=== PATIENT | female | born 1990 | race Hispanic/Latino ===

== ENCOUNTER 2019-07-11 18:07 | Emergency (ER) | payer BC ==
[2019-07-11 18:44] LABS: APPEARANCE,URINE SL CLOUDY (CLEAR); BILIRUBIN,URINE NEGATIVE (NEGATIVE); COLOR,URINE YELLOW (YELLOW); GLUCOSE, URINE (UA) NEGATIVE (NEGATIVE); KETONES,URINE 40 mg/dL (NEGATIVE); LEUKOCYTE ESTERASE ,URINE NEGATIVE (NEGATIVE); NITRATE,URINE NEGATIVE (NEGATIVE); OCCULT BLOOD,URINE SMALL (NEGATIVE); PROTEIN,URINE TRACE mg/dL (NEGATIVE); UROBILINOGEN,URINE 0.2 mg/dL (0.2-1.0)
[2019-07-11 18:47] LABS: HCG,QUAL RESULT POSITIVE (NEGATIVE)
[2019-07-11 18:55] LABS: BACTERIA,URINE Few /HPF (None Seen); MUCUS,URINE Few LPF (None Seen); SQUAMOUS EPITHELIAL CELL,UR Few /HPF (0-2)
== END 2019-07-11 20:42 | disposition home or self-care (01) ==
LOC: EDH 18:07
DX: O20.0 Threatened abortion (principal); Z98.890 Other specified postprocedural states; Z3A.13 13 weeks gestation of pregnancy
CPT/HCPCS: 36415; 76801; 81001; 81025; 84702; 87880

== ENCOUNTER 2019-08-08 06:37 | Observation (INO) | payer BC ==
[~2019-08-08] VITALS: Ht 160 cm; Wt 112.9 kg
[2019-08-08] MEDS ORDERED: ONDANSETRON HCL 4 MG/2 ML VIAL ONE ×2 (07:22→08:41)
[2019-08-08] MEDS ORDERED: MORPHINE SULFATE 4 MG/1ML SYG ONE (07:22)
[2019-08-08 07:25] LABS: BASOPHILS % (AUTO) 0.6 % (0.0-5.0); EOSINOPHILS % (AUTO) 0.8 % (0.0-8.0); HEMATOCRIT 35.7 % (36-48); LYMPHOCYTES % (AUTO) 16.6 % (21.0-51.0); MEAN CORPUSCULAR HGB CONC 34.3 g/dL (32.0-36.0); MEAN CORPUSCULAR VOLUME 81.7 fL (79-99); MONOCYTES % (AUTO) 3.9 % (3.0-13.0); NEUTROPHILS % (AUTO) 78.1 % (40.0-77.0); PLATELET COUNT (AUTO) 355 K/uL (130-400); RED BLOOD CELL COUNT(AUTO) 4.37 MIL/uL (4.00-5.50); RED CELL DISTRIBUTION WIDTH 13.8 % (11.0-15.5); WHITE BLOOD COUNT (AUTO) 14.8 K/uL (4.8-10.8)
[2019-08-08 07:28] LABS: CREATININE 0.7 mg/dL (0.5-1.5); POTASSIUM 4.1 mmol/L (3.5-5.1)
[2019-08-08 07:34] LABS: BILIRUBIN,TOTAL 0.2 mg/dL (0.2-1.0); TOTAL PROTEIN, SERUM 7.3 g/dL (6.0-8.3)
[2019-08-08 08:12] LABS: BILIRUBIN,URINE SMALL (NEGATIVE); COLOR,URINE YELLOW (YELLOW); GLUCOSE, URINE (UA) NEGATIVE (NEGATIVE); KETONES,URINE 15 mg/dL (NEGATIVE); LEUKOCYTE ESTERASE ,URINE SMALL (NEGATIVE); NITRATE,URINE NEGATIVE (NEGATIVE); OCCULT BLOOD,URINE LARGE (NEGATIVE); PROTEIN,URINE 30 mg/dL (NEGATIVE)
[2019-08-08 08:13] LABS: APPEARANCE,URINE SLIGHTLY CLOUDY (CLEAR); HCG,QUAL RESULT POSITIVE (NEGATIVE)
[2019-08-08 08:36] LABS: BACTERIA,URINE Moderate /HPF (None Seen); SQUAMOUS EPITHELIAL CELL,UR 30-50 /HPF (0-2)
[2019-08-08] MEDS ORDERED: SODIUM CHLORIDE 0.9% 1000ML 1,000 ML IV ONE (09:15)
[2019-08-08] MEDS ORDERED: CEFTRIAXONE SODIUM 1 GM ONE (09:53)
[2019-08-08] MEDS ORDERED: SODIUM CHLORIDE 0.9% 100 ML IV ONE (09:54)
[2019-08-08] MEDS ORDERED: DEXTROSE 5 %-0.45 % NACL 1,000 ML IV ONE (10:05)
[2019-08-08] MEDS ORDERED: MEPERIDINE-PF 50 MG/ML SYG ONE (10:30)
--- NOTE | 2019-08-08 11:00 | NUR ---
ER ADMISSION PT ADMITTED FROM ER BY STRETCHER IN STABLE CONDITION. DR. HERANNDEZ, RESIDENT FOR DR. SOLIS, AT BEDSIDE TO ASSESS AND TALK TO PT.
[2019-08-08 11:12] VITALS: BP 125/76
[2019-08-08] MEDS ORDERED: PREN-154 PO (11:17)
[2019-08-08] MEDS ORDERED: PROG100C11 PO (11:17)
[2019-08-08] MEDS ORDERED: FLU VACC QS2019-20 36MOS UP/PF 60 MCG/0.5 ML ML IM SCH (11:45)
[2019-08-08] MEDS ORDERED: MEPERIDINE-PF 50 MG/ML SYG IM PRN (12:30)
[2019-08-08] MEDS ORDERED: ONDANSETRON HCL 4 MG/2 ML VIAL IVP PRN (12:30)
[2019-08-08] MEDS: CEFAZOLIN SODIUM 1 GM VIAL IVP SCH ×2 (12:40→20:36)
[2019-08-08] MEDS: DEXTROSE 5 %-0.45 % NACL 1,000 ML IV SCH ×2 (12:50→19:04)
[2019-08-08 15:34] VITALS: BP 122/69
--- NOTE | 2019-08-08 17:50 | NUR ---
PHYSICIAN ROUNDING DR. JAYCEE SOLIS AT BEDSIDE TO ASSESS AND TALK TO PT. POC DISCUSSED AND PT IN AGREEMENT. NEW ORDERS RECEIVED FOR CLEAR LIQUID DIET.
[2019-08-08 19:22] VITALS: BP 121/68
[2019-08-08 23:20] VITALS: BP 108/64
[2019-08-09 04:07] VITALS: BP 111/68
[2019-08-09] MEDS: DEXTROSE 5 %-0.45 % NACL 1,000 ML IV SCH (04:31)
[2019-08-09] MEDS: CEFAZOLIN SODIUM 1 GM VIAL IVP SCH (05:21)
[2019-08-09 05:26] LABS: HEMATOCRIT 30.7 % (36-48); MEAN CORPUSCULAR HEMOGLOBIN 28.6 pg (27.0-33.0); MEAN CORPUSCULAR HGB CONC 34.2 g/dL (32.0-36.0); MEAN CORPUSCULAR VOLUME 83.6 fL (79-99); PLATELET COUNT (AUTO) 299 K/uL (130-400); RED BLOOD CELL COUNT(AUTO) 3.67 MIL/uL (4.00-5.50); RED CELL DISTRIBUTION WIDTH 13.9 % (11.0-15.5); WHITE BLOOD COUNT (AUTO) 11.3 K/uL (4.8-10.8)
[2019-08-09 07:34] VITALS: BP 123/76
--- NOTE | 2019-08-09 08:25 | NUR ---
PHYSICIAN ROUNDING DR. SOLIS AT BEDSIDE TO ASSESS AND TALK TO PT. NEW ORDERS RECEIVED FOR DISCHARGE.
--- NOTE | 2019-08-09 09:50 | NUR ---
DISCHARGE TEACHING PATIENT GIVEN DISCHARGE TEACHING AND INSTRUCTIONS ON UTI PREVENTION. PATIENT VERBALIZED UNDERSTANDING. PATIENT INFORMED ON NEW PRESCRIPTIONS AND FOLLOW UP VISIT.
--- NOTE | 2019-08-09 10:00 | NUR ---
PATIENT DISCHARGE [facility] TOLERATED WELL STATING NO PAIN OR DISCOMFORT AT THIS TIME. PATIENT ESCORTED BY SIGNIFICANT OTHER. PATIENT ASSISTED INTO PRIVATE VEHICLE.
== END 2019-08-09 10:00 | disposition home or self-care (01) ==
LOC: EDH 06:37 → INTOOBSV 10:00 → EDHIP 10:00 → WSH 11:00
PROVIDERS: ADMIT Obstetrics & Gynecology; ATTEND Obstetrics & Gynecology
DX: O21.0 Mild hyperemesis gravidarum (principal); E86.0 Dehydration; O99.89 Other specified diseases and conditions complicating pregnancy, childbirth and the puerperium; M54.9 Dorsalgia, unspecified; O24.419 Gestational diabetes mellitus in pregnancy, unspecified control; Z23 Encounter for immunization; Z3A.17 17 weeks gestation of pregnancy
CPT/HCPCS: 36415 ×2; 76700; 76805; 80053; 81001; 81025; 85025; 85027; 87088; 90471; 96361 ×2; 96372; 96374; 96375; 96376 ×2; 99283; G0378 ×24; J0690 ×3; J0696; J2175 ×2; J2270; J2405 ×3; J7030; J7042; Q2035